=== PATIENT | male | born 1995 | race Caucasian/White ===

== ENCOUNTER 2018-11-18 21:37 | Emergency (ER) | payer BC ==
--- NOTE | 2018-11-18 22:08 | ED Physician Documentation ---
General Adult - HISTORIAN Historian: patient - HPI Stated Complaint: Weakness while at work, light headed Chief Complaint: Weakness Onset: other (total 10 days ) Timing: better Severity: mild Further Comments: yes (Per pt and mom at bedside he had weakness at work and he felt his legs were numb so his boss brought him home. He states that has resolved. He is working in a hot environment all week he said he did drink 9 replacement drinks and he only had one urinary output. He states he didnt really get dizzy or have any shortness of air but he felt weak and had some numbness in his legs that then at home moved from his legs to his hands and arms. This is all gone now. No weakness on one side. Mom denies any changes in his mentation. He has had a illness for about 10 days. He started with fever and cough and was treated for possible pnuemonia) Last known Well Code/Unknown Code: Unknown - ROS CONST: fever, recent illness, weakness EYES/ENT: nasal drainage, nasal congestion GI/: none MS/SKIN/LYMPH: none NEURO/PSYCH: headache (on and off in last week and a half ) - PAST HX Past History: none Other History: none Surgeries/Procedures: none Immunizations: UTD Allergies/Adverse Reactions: Allergies Allergy/AdvReac Type Severity Reaction Status Date / Time pear Allergy Verified 11/18/18 21:59 Home Medications: Ambulatory Orders Medication Instructions Recorded NK 11/18/18 - SOCIAL HX Smoking History: non-smoker Alcohol Use: none Drug Use: none - FAMILY HX Family History: No - VITAL SIGNS Vital Signs: Vital Signs Temp Pulse Resp BP Pulse Ox 98.5 F 82 14 140/94 97 11/18/18 21:37 11/18/18 21:37 11/18/18 21:37 11/18/18 21:37 11/18/18 21:37 - REVIEWED ASSESSMENTS Nursing Assessment Reviewed: Yes Vitals Reviewed: Yes Progress - Progress Progress: 2300: discussed findings and plan with pt and mom - she and he are agreeable. He denies any dizziness or numb feeling at this time DG ED Results Lab/Radiology - Radiology Radiology Impressions: Chest, 2 view History: Pneumonia soa,weakness Findings: The heart size is normal. The lungs are clear. There is no pleural effusion or pneumothorax identified. The osseous structures are normal. Impression: 1. No acute pulmonary disease. Electronically signed on Nov 18, 2018 10:49:10 PM CDT by: Victor Manuel Allred - Orders Orders: ED Orders Category Date Time Status Continuous EKG monitoring Q1H Care 11/18/18 21:58 Active Continuous Pulse Oximetry Q1H Care 11/18/18 21:58 Active General Adult Physical Exam - PHYSICAL EXAM GENERAL APPEARANCE: no distress EENT: eye inspection normal, pharynx normal, abnormal TM (left TM red ), dry mucous membranes NECK: normal inspection RESPIRATORY: no resp distress, chest non-tender, breath sounds normal CVS: reg rate & rhythm, heart sounds normal ABDOMEN: soft, normal bowel sounds, no distension BACK: normal inspection SKIN: warm/dry, normal color EXTREMITIES: non-tender, normal range of motion, no evidence of injury NEURO: oriented X3 Discharge Clincal Impression: Dehydration Referrals: Cy Resendiz MD [Primary Care Provider] - 2 Days Comments: 1. Time off work and rest 2. Increase fluids 3. Change position slowly 4. See PCP Thursday 5. Return to ER for any increasing concerns Condition: Stable Decision to Admit: NO Date of Decison to Admit: 11/18/18 Decision Time: 23:02
[2018-11-18] MEDS: 0.9 % SODIUM CHLORIDE 1,000 ML IV ONE (22:30)
[2018-11-18 23:33] VITALS: BP 128/92
[2018-11-19 06:17] LABS: BASOPHILS % 0.8 % (0.0-1.5); NEUTROPHILS # 9.8 # k/uL (1.4-7.7); eGFR (Non-African) > 60
--- NOTE | 2018-11-19 09:53 | Diagnostic Imaging Report ---
COLLEEN HINES [facility] [id number] [facility] [address] [place], [place]. [address] Report Submission Date: Nov 18, 2018 10:49:10 PM CDT Patient Study Name: CLARISSA RODRIGUES Date: Nov 18, 2018 10:28:52 PM CDT Modality Type: DX Gender: M Description: CHEST 2VIEW : 89 Institution: [facility] Physician: COLLEEN HINES Chest, 2 view History: Pneumonia soa,weakness Findings: The heart size is normal. The lungs are clear. There is no pleural effusion or pneumothorax identified. The osseous structures are normal. Impression: 1. No acute pulmonary disease. Electronically signed on Nov 18, 2018 10:49:10 PM CDT by: Victor Manuel TREJO
== END 2018-11-18 23:12 | disposition home or self-care (01) ==
LOC: ED 21:37
DX: E86.0 Dehydration (principal); R20.0 Anesthesia of skin
CPT/HCPCS: 71046; 80053; 85025; 93005; 96360; 99284; J7030; S1016